=== PATIENT | female | born 1950 | race Caucasian/White ===

== ENCOUNTER 2022-03-02 17:31 | Emergency (ER) | payer MEDICARE ==
[~2022-03-02] VITALS: Ht 160 cm; Wt 70.3 kg
[2022-03-02 18:30] LABS: Influenza A, PCR NEGATIVE (NEGATIVE); Influenza B, PCR NEGATIVE (NEGATIVE); Resp Syncytial Virus, PCR NEGATIVE (NEGATIVE); SARS-Cov-2 (COVID-19) PCR, MMC NEGATIVE (NEGATIVE)
== END 2022-03-02 21:19 | disposition home or self-care (01) ==
LOC: ER 17:31
PROVIDERS: Physician Assistant
DX: R51.9 Headache, unspecified (principal); H57.12 Ocular pain, left eye; H92.02 Otalgia, left ear; R11.2 Nausea with vomiting, unspecified; I10 Essential (primary) hypertension; Z20.822 Contact with and (suspected) exposure to COVID-19
CPT/HCPCS: 0241U; 70450; A9270; J1885; J2405

== ENCOUNTER 2022-09-09 11:42 | Day surgery (SDC) | payer MEDICARE ==
[~2022-09-09] VITALS: Ht 165.1 cm; Wt 79.4 kg
[2022-09-09] MEDS ORDERED: EUTHYROX88 MCG PO (12:00)
[2022-09-09] MEDS ORDERED: TRIA50 PO (12:00)
--- NOTE | 2022-09-09 14:16 | NUR ---
09/09/22 Levi6 Lia Rojas IV REGLAN GIVEN AND SCOP PATCH APPLIED PER ORDERS FOR NAUSEA
== END 2022-09-09 14:32 | disposition home or self-care (01) ==
LOC: ORSCSDS 11:42
PROVIDERS: Ophthalmology
PROC: 08RK3JZ Replacement of Left Lens with Synthetic Substitute, Percutaneous Approach (ICD-10-PCS; principal; 2022-09-09 13:00)
DX: H25.12 Age-related nuclear cataract, left eye (principal); I10 Essential (primary) hypertension; I73.9 Peripheral vascular disease, unspecified; E03.9 Hypothyroidism, unspecified; Z79.899 Other long term (current) drug therapy
CPT/HCPCS: A9270; J2001; J2250; J2405; J2765; J3010; J3301; J7040; V2632

== ENCOUNTER 2022-11-27 09:42 | Day surgery (SDC) | payer MEDICARE ==
[~2022-11-27] VITALS: Ht 162.6 cm; Wt 79.4 kg
[~2022-11-27 09:42] MED LIST: EUTHYROX88 MCG PO; TRIA50 PO
--- NOTE | 2022-11-27 10:19 | NUR ---
PER PT S/P LEFT CATARACT BECAME "REALLY" SICK AFTER PROCEEDURE. WOULD LIKE TO DO PROCEEDURE WITHOUT FENTANYL
[2022-11-27] MEDS ORDERED: TRIAMT/HCTZ 37.5-25 (10:21)
[2022-11-27] MEDS ORDERED: TOPI15C (10:22)
[2022-11-27] MEDS ORDERED: PROZAC2010 PO (10:23)
--- NOTE | 2022-11-27 10:24 | NUR ---
11/27/22 1024 Diane Sams AT 1020 PLEDGET AT 1022
[2022-11-27 11:29] VITALS: BP 109/64
== END 2022-11-27 11:45 | disposition home or self-care (01) ==
LOC: ORSCSDS 09:42
PROVIDERS: Ophthalmology
PROC: 08DJ3ZZ Extraction of Right Lens, Percutaneous Approach (ICD-10-PCS; principal; 2022-11-27 11:00)
DX: H25.11 Age-related nuclear cataract, right eye (principal); Z96.1 Presence of intraocular lens; H53.001 Unspecified amblyopia, right eye; H35.342 Macular cyst, hole, or pseudohole, left eye; H35.30 Unspecified macular degeneration; H35.352 Cystoid macular degeneration, left eye; G47.33 Obstructive sleep apnea (adult) (pediatric); I10 Essential (primary) hypertension; Z79.899 Other long term (current) drug therapy
CPT/HCPCS: J2001; J2250; J2405; J3301; J7040; V2632